=== PATIENT | male | born 1995 | race Hispanic/Latino ===

== ENCOUNTER 2019-10-22 14:22 | Observation (INO) | payer SELFPAY ==
[~2019-10-22 14:22] MED LIST: Iopamidol-370 76% 500 ML 1 ML ONE
[2019-10-22] MEDS ORDERED: Ondansetron PF 4 MG/2 ML Vial ONE ×2 (15:27→20:03)
[2019-10-22] MEDS ORDERED: Ketorolac Tromethamine 30 MG/ML VIAL ONE (15:27)
[2019-10-22 15:49] LABS: #Lymphocytes 0.9 thou/uL (1.20-3.40); #Monocytes 0.5 thou/uL (0.11-0.59); #Neutrophils 15.4 thou/uL (1.40-6.50); %Basophils 0.2 % (0.0-1.0); %Eosinophils 0.1 % (0.0-10.0); %Lymphocytes 5.4 % (21.0-51.0); %Monocytes 2.8 % (0.0-10.0); %Neutrophils 91.5 % (42.0-75.0); Hemoglobin 14.7 g/dL (14.0-18.0); Mean Corpuscular HGB CONC 34.2 g/dL (32.0-36.0); Mean Corpuscular Hemoglobin 30.6 pg (27.0-31.0); Mean Corpuscular Volume 89.5 fL (78.0-98.0); Mean Platelet Volume 9.4 fL (7.4-10.4); Platelet Count 264 thou/uL (130-400); RBC Distribution Width 10.5 % (11.5-14.5); Red Blood Cell (RBC) Count 4.81 mill/uL (4.70-6.10); White Blood Cell (WBC) Count 16.9 thou/uL (4.8-10.8)
[2019-10-22 15:54] LABS: ALT (SGPT) 12 U/L (8-55); AST (SGOT) 18 U/L (5-34); Albumin 4.4 g/dL (3.5-5.0); Alkaline Phosphatase 113 U/L (40-110); Anion Gap 15 mmol/L (10-20); BUN (Urea Nitrogen) 6 mg/dL (8.9-20.6); Bilirubin, Total 1.3 mg/dL (0.2-1.2); Calc. Creatinine Clearance 0 mL/min (70-130); Calcium 9.3 mg/dL (7.8-10.44); Carbon Dioxide 26 mmol/L (22-29); Chloride 98 mmol/L (98-107); Estimated GFR-MDRD Greater than 90; Globulin 3.3 g/dL (2.4-3.5); Glucose 97 mg/dL (70-105); Lipase 64 U/L (8-78); Potassium 3.6 mmol/L (3.5-5.1); Protein, Total 7.7 g/dL (6.0-8.3); Sodium 135 mmol/L (136-145)
[2019-10-22 15:57] LABS: Bacteria/HPF None Seen HPF (None Seen); Bilirubin Negative (Negative); Blood, Urine 1+ (Negative); Clarity Clear (Clear); Glucose, Urine (Dipstick) Normal (Negative); Leukocyte Negative Leu/uL (Negative); Nitrite Negative (Negative); Protein, Urine (Dipstick) 30 mg/dL (Neg-Trace); Squamous Epithelial None Seen HPF (0-3); Urobilinogen 3 mg/dL (Less than 2); WBC/HPF 0-3 HPF (0-3)
--- NOTE | 2019-10-22 17:02 | CT ---
CT ABDOMEN AND PELVIS PERFORMED WITH INTRAVENOUS CONTRAST ENHANCEMENT: 10/22/19 HISTORY: Abdominal pain. Lung bases show some ground glass type opacity within the lung bases which could represent a pneumoni tis type process. The liver, spleen, pancreas, and gallbladder regions appear unremarkable. Right and left adrenal glands and right and left kidneys are normal in size. There is no significant periaortic adenopathy. There are a few scattered mesenteric lymph nodes nonspecific. CT OF PELVIS PERFORMED WITH CONTRAST ENHANCEMENT: No evidence of adenopathy, mass, or free fluid. The appendix is normal. No significant bony findings. IMPRESSION: 1. No acute findings of the abdomen or pelvis. 2. Ground glass opacity to the lung bases with other areas which could indicate some air trappin g. Changes could be related to some type of pneumonitis type process. Less likely to be chronic in na ture in a patient of this age. POS: OFF
[2019-10-22] MEDS ORDERED: Acetaminophen 500 MG TAB ONE (18:27)
[2019-10-22] MEDS ORDERED: cefTRIAXone\\ROCEPHIN 2 GM VIAL ONE (19:01)
[2019-10-22] MEDS ORDERED: Azithromycin 500 MG VIAL ONE (19:01)
--- NOTE | 2019-10-22 19:29 | RAD ---
PORTABLE CHEST ONE VIEW: 10/22/19 at 7:16 p.m. HISTORY: Fever, nausea. FINDINGS: There are no previous exams for comparison. The heart size is normal. The lungs are expanded without lobar consolidation, pneumothoraces or pleur al effusions. IMPRESSION: No radiographic evidence of acute cardiopulmonary process. POS: [facility]
[2019-10-22] MEDS ORDERED: Promethazine HCl 25 MG/ML VIAL ONE (20:35)
[2019-10-22] MEDS ORDERED: diphenhydrAMINE 50 MG/ML VIAL ONE (20:50)
[2019-10-22] MEDS ORDERED: Dexamethasone 4 mg/ml Vial ONE (20:50)
[2019-10-22] MEDS ORDERED: Acetaminophen 325 MG TAB PO PRN (21:40)
[2019-10-22] MEDS ORDERED: Ondansetron PF 4 MG/2 ML Vial IVP PRN (21:40)
[2019-10-22] MEDS ORDERED: HYDROcodone/Acetaminophen 5/325 mg Tablet PO PRN ×2 (21:40)
[2019-10-22] MEDS ORDERED: Sodium Chloride 0.9% 1,000 ML IV SCH (21:40)
[2019-10-22] MEDS ORDERED: Ondansetron ODT 4 MG TAB SL PRN (21:40)
[2019-10-22] MEDS ORDERED: diphenhydrAMINE 25 MG CAP PO PRN (22:31)
[2019-10-22 22:39] VITALS: BMI 21.9
[2019-10-22] MEDS: Sodium Chloride 0.9% 1,000 ML IV SCH (23:13)
[2019-10-22] MEDS ORDERED: Sodium Chloride 0.9% (PF) 10 ML VIAL FS PRN (23:29)
[2019-10-23 00:04] LABS: Medtox Reader # READER 4
[2019-10-23 00:05] LABS: Amphetamine Not Detected (NotDetected); Barbiturates Screen Not Detected (NotDetected); Benzodiazepine Screen Not Detected (NotDetected); Cocaine Metabolite Screen Not Detected (NotDetected); Medtox Control Line Valid? VALID (VALID); Methadone Not Detected (NotDetected); Methamphetamine Not Detected (NotDetected); Opiate Screen Not Detected (NotDetected); Oxycodone Screen Not Detected (NotDetected); Phencyclidine (PCP) Not Detected (NotDetected); THC/Cannabinoid Screen Detected (NotDetected); Tricyclic Screen Not Detected (NotDetected)
--- NOTE | 2019-10-23 00:13 | HP ---
TIME OF ASSESSMENT: 2200 hours. CHIEF COMPLAINT: Abdominal pain, vomiting and diarrhea. HISTORY OF PRESENT ILLNESS: Mr. Lafleur is a 23-year-old gentleman, who reports having nausea, vomiting, and diarrhea as well as abdominal pain for the last week. He states he has been unable to tolerate any oral intake. Reports the stools have been between loose and watery. He reports feeling generally unwell, and has felt feverish at home. He has not taken his temperature. Denies having any cough, sore throat, shortness of breath, or chest pain. Denies having any urinary symptoms. He and his parents are concerned about recent infection involving the lower wisdom teeth, for which he received antibiotics in the last month. He apparently was referred to an oral surgeon, who stated he could not remove the wisdom teeth due to extensive underlying infection. He apparently completed a course of antibiotics, but never returned for followup. He denies any difficulty swallowing. The patient apparently was seen in the emergency department several days ago and had been sent home on antiemetics as well as pantoprazole with no improvement. ED COURSE: In the emergency department, he was noted to have a temperature of 100.6. He underwent laboratory studies that were notable for white count of 16.9, neutrophils 91.5%. LFTs notable for total bilirubin of 1.3 and alkaline phosphatase of 113. Lipase was normal at 64. He had a urinalysis done, which showed 30 of protein, 100 ketones, 1+ blood, 7 to 10 red blood cells, but negative for leukocyte esterase, nitrites, and no bacteria present. He had a chest x-ray done that showed no radiographic evidence of acute cardiopulmonary process. CT of the abdomen and pelvis was done as well, demonstrating no acute findings of the abdomen or pelvis. However, he did have ground-glass opacity to the lung bases with other areas felt to indicate some air trapping. This was felt to be associated with pneumonitis. He was started on IV antibiotics with Rocephin and also given Zofran for the nausea and vomiting as well as Toradol 50 mg IV for his pain. The patient apparently began to react to the Rocephin with facial swelling and erythema. He experienced some mild itching. He was therefore given Phenergan, Benadryl, and Decadron. He was switched to azithromycin. PAST MEDICAL HISTORY: 1. Recent infection associated with lower wisdom teeth. 2. History of inguinal hernias. PAST SURGICAL HISTORY: 1. Bilateral inguinal hernia repair. 2. Right shoulder surgery. SOCIAL HISTORY: The patient denies any tobacco use, alcohol consumption, or illicit drug use. FAMILY HISTORY: Noncontributory. ALLERGIES: PREVIOUSLY, NO KNOWN DRUG ALLERGIES, BUT NOW NOTED TO HAVE ALLERGY TO ROCEPHIN. CURRENT MEDICATIONS: None. PHYSICAL EXAMINATION: GENERAL: The patient appears thin, well developed, and is in no acute distress. VITAL SIGNS: Temperature 98.9, pulse 70, respirations 16, blood pressure 129/70, O2 saturation 97% on room air. HEENT: Normocephalic and atraumatic. The patient with notable periorbital swelling that is mild. Slight erythema over his left cheek. No rash. No hives. Oropharynx is clear. NECK: Notable for cervical adenopathy. No nuchal rigidity or stiffness. Full range of motion. LUNGS: Clear to auscultation bilaterally without any wheezes, rales, or rhonchi. CARDIAC: Regular rate and rhythm without audible murmurs, rubs, or gallops. ABDOMEN: Soft, nondistended. Diffuse discomfort with palpation, but no guarding, or rigidity. No renal angle tenderness. EXTREMITIES: No lower leg swelling or edema. NEUROLOGIC: Alert and oriented x3. SKIN: Warm and dry. INVESTIGATIONS: As mentioned above in HPI. IMPRESSION AND PLAN: Mr. Lafleur is a 23-year-old gentleman, who is being admitted for management of the followin. Leukocytosis and fever. Source of infection none. CT abdomen and pelvis showed possibility of pneumonitis involving the lung bases. We will obtain CT of the chest in the morning and we will add on a CT of the neck as family is concerned. He may have infection involving his neck or wisdom teeth given extensive infection he was treated for recently. We will add on lactic acid. Repeat LFTs with morning labs. 2. Nausea, vomiting, and diarrhea. Could be viral in nature. We will keep him on a clear liquid diet. Given recent antibiotics, we will obtain stool studies including C diff. Continue IV fluids. 3. Hyperbilirubinemia. Again, repeat LFTs and lipase with morning labs. 4. Gastrointestinal prophylaxis. We will continue Protonix. 5. Allergic reaction has improved. Continue to monitor. P.r.n. Benadryl ordered. 6. Deep venous thrombosis prophylaxis. Mechanical SCDs. 7. Code status full. Surrogate decision maker is his mother, Elza Lafleur. Case was discussed with attending, who agrees upon care as described above. Job ID: [id number]
[2019-10-23 06:03] LABS: #Lymphocytes 0.4 thou/uL (1.20-3.40); #Monocytes 0.1 thou/uL (0.11-0.59); #Neutrophils 8.7 thou/uL (1.40-6.50); %Basophils 0.1 % (0.0-1.0); %Eosinophils 0.1 % (0.0-10.0); %Lymphocytes 4.7 % (21.0-51.0); %Monocytes 1.2 % (0.0-10.0); %Neutrophils 93.8 % (42.0-75.0); Hemoglobin 13.3 g/dL (14.0-18.0); Mean Corpuscular Volume 91.5 fL (78.0-98.0); Mean Platelet Volume 8.7 fL (7.4-10.4); Platelet Count 222 thou/uL (130-400); RBC Distribution Width 10.5 % (11.5-14.5); Red Blood Cell (RBC) Count 4.17 mill/uL (4.70-6.10); White Blood Cell (WBC) Count 9.3 thou/uL (4.8-10.8)
[2019-10-23 06:28] LABS: ALT (SGPT) 13 U/L (8-55); AST (SGOT) 18 U/L (5-34); Albumin 3.8 g/dL (3.5-5.0); Alkaline Phosphatase 100 U/L (40-110); Anion Gap 12 mmol/L (10-20); BUN (Urea Nitrogen) 10 mg/dL (8.9-20.6); Bilirubin, Total 0.7 mg/dL (0.2-1.2); Calc. Creatinine Clearance 146 mL/min (70-130); Calcium 8.8 mg/dL (7.8-10.44); Carbon Dioxide 22 mmol/L (22-29); Chloride 107 mmol/L (98-107); Estimated GFR-MDRD Greater than 90; Globulin 2.9 g/dL (2.4-3.5); Glucose 111 mg/dL (70-105); Lipase 29 U/L (8-78); Potassium 4.4 mmol/L (3.5-5.1); Protein, Total 6.7 g/dL (6.0-8.3); Sodium 137 mmol/L (136-145)
--- NOTE | 2019-10-23 08:44 | CT ---
CT chest with IV contrast HISTORY: Fever. Leukocytosis. Lung infiltrate. FINDINGS: Lungs are slightly hyperinflated. Subtle peripheral groundglass opacities involving each up per lobe. No lobar consolidation. No pleural fluid or focal mass. No enlarged lymph nodes evident within the mediastinum. IMPRESSION: Subtle peripheral bilateral upper lobe groundglass parenchymal opacities. While nonspecif ic, this can be seen with acute hypersensitivity reaction and eosinophilic pneumonia. In the setting of fever and abdominal pain, parasitic infection or other infectious process may result in th michael findings.
[2019-10-23] MEDS: Sodium Chloride 0.9% 1,000 ML IV SCH (08:45)
--- NOTE | 2019-10-23 08:52 | CT ---
CT neck with IV contrast HISTORY: Fever. Leukocytosis. FINDINGS: Upper airway is patent. Nonspecific lymph nodes along each jugular chain. Visualized saliva ry glands are symmetric. No fluid collections or focal inflammation evident. Subtle groundglass parenchymal opacities of the partially visualized upper lung lobes better detailed on dedicated CT ch est. IMPRESSION: No abnormalities are demonstrated
[2019-10-23] MEDS ORDERED: Pantoprazole 40 MG VIAL IVP SCH (09:00)
[2019-10-23 12:57] VITALS: TEMP 98.2
--- NOTE | 2019-10-23 14:44 | PDOC.HOSPP ---
- Subjective Encounter Date: 10/23/19 Encounter Time: 09:00 Subjective: Pt seen for followup re; diarrhea. Feels better today. - Objective Vital Signs & Weight: Vital Signs (12 hours) Temp Pulse Resp BP BP Pulse Ox 10/23/19 12:00 98.2 F 94 18 117/70 99 10/23/19 08:00 97.9 F 89 18 117/72 98 10/23/19 04:42 97.9 F 91 20 107/67 98 Weight Weight 139 lb 12.8 oz I&O: 10/22/19 10/23/19 10/24/19 06:59 06:59 06:59 Intake Total 1300 Balance 1300 Result Diagrams: 10/23/19 05:53 10/23/19 05:53 Additional Labs: labs and MARs reviewed by [facility] Hospitalist ROS - Review of Systems Respiratory: denies: cough, shortness of breath, SOB with excertion, pleuritic pain, wheezing Cardiovascular: denies: chest pain, palpitations, orthopnea, paroxysmal noc. dyspnea, edema, light headedness - Medication Medications: Active Medications Generic Name Dose Route Start Last Admin Trade Name Freq PRN Reason Stop Dose Admin Sodium Chloride 1,000 mls @ 100 mls/hr 10/22/19 23:00 10/23/19 08:45 Normal Saline 0.9% IV 1,000 mls .Q10H SHAKILA Administration Pantoprazole Sodium 40 mg 10/23/19 09:00 10/23/19 08:42 Protonix IVP 40 mg DAILY SHAKILA Administration - Exam General Appearance: NAD Eye: anicteric sclera ENT: moist mucosa Neck: supple Heart: RRR Respiratory: CTAB Gastrointestinal: soft, non-tender Neurological: no weakness Psychiatric: normal affect, normal behavior Hosp A/P (1) Diarrhea Code(s): R19.7 - DIARRHEA, UNSPECIFIED Status: Acute (2) Hyponatremia Code(s): E87.1 - HYPO-OSMOLALITY AND HYPONATREMIA Status: Chronic (3) Leucocytosis Code(s): D72.829 - ELEVATED WHITE BLOOD CELL COUNT, UNSPECIFIED Status: Chronic - Plan out of bed/ambulate Diarrhea improved. No evidence of infection. Start Imodium. ? viral etiology.
[2019-10-23] MEDS ORDERED: Loperamide HCl 2 MG CAP PO PRN (14:52)
[2019-10-23] MEDS ORDERED: Loperamide HCl 2 MG CAP PO SCH (15:00)
--- NOTE | 2019-10-23 15:54 | CON ---
DATE OF CONSULTATION: 10/23/2019 REASON FOR CONSULTATION: Abdominal pain, diarrhea. 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 Otherwise, no significant past medical history and well until about a week before when he developed diarrhea, nausea, associated with inability to eat a proper diet and then abdominal pain, which is diffuse. Started having vomiting spells and low-grade temperature elevation and ended up coming to the emergency room. Initial findings with a temperature 100, pulse 108, respirations 20, blood pressure 130/70, O2 saturation 100%. The exam was remarkable for diffuse abdominal tenderness. Other findings; white cell count 16.9, hemoglobin 14.7, platelets 264, 91% neutrophils. Sodium 135, creatinine 0.8, bilirubin 1.3, alkaline phosphatase 113. Urinalysis is 0 to 3 wbc's, 7 to 10 rbc's, 30 protein. Microbiology, all negative including stool for C diff, Campylobacter, and Shiga toxin. Blood cultures influenza, stool lactoferrin was elevated though. The patient had abdomen and pelvis CT with no findings of significance in the abdominal and pelvic area. He did have some ground-glass opacities in lung bases. Soft tissue neck CT was completed and no significant findings noted. Currently, he is feeling better, back to normal pretty much, he is hungry. No headaches, visual symptoms, sore throat, odynophagia, or dysphagia. No cough, sputum production, or chest pain. No more abdominal pain. No genitourinary symptoms. No joint symptoms. No skin disorder. PAST MEDICAL HISTORY: Herniorrhaphy and shoulder surgery. ALLERGIES: CEFTRIAXONE WITH RASH. 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 FAMILY HISTORY: Noncontributory. PHYSICAL EXAMINATION: VITAL SIGNS: Essentially normal. He has been afebrile since admission. SKIN: Normal. LYMPHATIC: There is no lymphadenopathy. HEENT: Ocular movements conjugate. Oral cavity completely normal with excellent teeth. NECK: Supple. No jugular vein distention or carotid bruits. LUNGS: Symmetric clear breath sounds. HEART: S1 and S2. Regular rate. ABDOMEN: Soft, not distended or tender. No ascites. No bladder distention. EXTREMITIES: No joint inflammatory activity. Moves extremities equally. NEUROLOGIC: Cognitive function is intact. LABORATORY DATA: White cell count is at 9.3, hemoglobin 13, platelets 222 with 92% neutrophils. Followup chemistry with normalization of bilirubin and alkaline phosphatase. ASSESSMENT: Low-grade fever with vomiting, diarrhea, diffuse abdominal pain, mild abnormalities in liver function tests. DISCUSSION: Differential diagnosis includes gastrointestinal illness associated with gastroenteritis possibly from food borne pathogen including possibility of norovirus, the usual enteral pathogens. The lung findings do not seem to be pertinent to the current clinical presentation. This seems to be a transient illness, so I do not expect any persistence or recrudescence of symptoms. In view of his exposure history clearing [place] and so on, there is a risk of exposure to histoplasmosis and cryptococcosis, but he does not appear to have any manifestations that would suggest that. At this moment, we will recommend discharge planning with followup in the outpatient setting. Job ID: [id number]
[2019-10-23 16:35] LABS: Syphilis Antibody Nonreactive (Nonreactive); Syphilis Antibody Index 0.05 S/CO (<1.00 Non-Reactive)
[2019-10-23 16:37] LABS: HBSAB Concentration 1.83 mIU/mL; HBSAg Index 0.31 S/CO (0-0.99); HIV (1/2) Antibody/Antigen Non-Reactive (NonReactive); HIV 1/2 INDEX 0.15 S/CO (<1.00); Hep A IgM AB Non-Reactive (NonReactive); Hep A IgM S/CO 0.21 S/CO (0-0.79); Hep B Surf AB Non-Reactive (NonReactive); Hep B Surf Ag Non-Reactive S/CO (NonReactive); Hep C IgG Ab Non-Reactive (NonReactive); Hep C Index 0.07 S/CO (0-0.79)
[2019-10-23 16:55] VITALS: BP 112/71
--- NOTE | 2019-10-24 00:34 | DIS ---
DATE OF ADMISSION: 10/22/2019 DATE OF DISCHARGE: 10/23/2019 PRIMARY CARE PROVIDER: Dr. Christopher Chambers. DISCHARGE DIAGNOSES: 1. Nausea and vomiting. 2. Diarrhea. 3. Most likely viral etiology for above symptoms. 4. Hyponatremia. 5. Leukocytosis. CONDITION OF PATIENT ON THE DAY OF DISCHARGE: Stable. I assessed Mr. Lafleur on the day of discharge. He denies any chest pain or shortness of breath. Vital signs are stable. S1 and S2 are heard, regular. Lungs are clear to auscultation bilaterally. CONSULTATIONS DURING THIS HOSPITALIZATION: Infectious Diseases, Jose Woodard MD. POST-ACUTE CARE FOLLOWUP: With primary care provider in 3 days time. HOSPITAL COURSE: Mr. Lafleur is a pleasant 23-year-old gentleman, who was admitted to [facility] on October 22, 2019, for nausea, vomiting, and diarrhea. Please refer to Ms. Romero's history and physical note dated October 23, 2019, for further details. CT scan of the abdomen and pelvis did not show any acute findings. CT scan of the chest showed subtle peripheral bilateral upper lobe ground-glass parenchymal opacities. This was nonspecific, but can be seen with acute hypersensitivity reaction and eosinophilic pneumonia. In the setting of fever and abdominal pain, parasitic infection or other infectious process may result in this findings, according to radiology. He also had CT scan of the soft tissues of the neck, which did not show any abnormalities. His symptoms resolved. Campylobacter antigen assay and E coli shiga toxins 1 and 2 were negative. Clostridium difficile test was negative. Stool rapid parasite screen was negative for Giardia and Cryptosporidium. Stool lactoferrin was elevated. At the time of this dictation, preliminary blood cultures are negative. He has been advised to follow up with primary care provider for final blood culture result. He has also been advised to follow up with primary care provider regarding abnormalities seen on CT scan. He was seen by Infectious Disease Service. It was felt that the CT scan of chest findings were not related to his presentation. He has been cleared for discharge. Many thanks for allowing me to participate in your patient's care. Please feel free to contact me with any questions or concerns. On the day of discharge, he has white count 9300, hemoglobin 13.3, platelet count 222,000, and an unremarkable comprehensive metabolic profile. Syphilis screen was nonreactive during this hospitalization. DISCHARGE DESTINATION: Home. Many thanks for allowing me to participate in your patient's care. Please feel free to contact me with any questions or concerns. ACTIVITY: Ad joelle. DIET: Regular. Job ID: [id number]
--- NOTE | 2019-11-05 15:43 | EKG ---
Test Reason : ABD PAIN Blood Pressure : / mmHG Vent. Rate : 106 BPM Atrial Rate : 106 BPM P-R Int : 116 ms QRS Dur : 098 ms QT Int : 318 ms P-R-T Axes : 067 061 056 degrees QTc Int : 422 ms Poor data quality, interpretation may be adversely affected Sinus tachycardia with Fusion complexes Incomplete right bundle branch block Borderline ECG Confirmed by RAYA TAYLOR ([id number]), make up editor WAYLON MARTINES ([id number]) on 11/05/2019 3:42:55 PM Referred By: Confirmed By:RAYA Craft
== END 2019-10-23 17:36 | disposition home or self-care (01) ==
LOC: ERS 14:22 → T4-B 20:33 → ERS 21:28
PROVIDERS: ADMIT Family Medicine; ATTEND Family Medicine
DX: R11.2 Nausea with vomiting, unspecified (principal); R19.7 Diarrhea, unspecified; R10.9 Unspecified abdominal pain; E87.1 Hypo-osmolality and hyponatremia; D72.829 Elevated white blood cell count, unspecified; E80.6 Other disorders of bilirubin metabolism; R94.5 Abnormal results of liver function studies; R50.9 Fever, unspecified; Z88.1 Allergy status to other antibiotic agents
CPT/HCPCS: 36415; 70491; 71045; 71260; 74177; 80053; 80306; 81003; 81015; 83605; 83630; 83690; 85025; 86706; 86709; 86780; 86803; 87040; 87045; 87046; 87077; 87149; 87324; 87328; 87329; 87340; 87389; 87427; 87449; 87633; 87804; 93005; 96361; 96365; 96367; 96375; 96376; C9113; G0378; J0456; J0696; J1100; J1200; J1885; J2405; J2550; Q9967

== ENCOUNTER 2019-10-25 18:28 | Emergency (ER) | payer SELFPAY ==
[2019-10-25 19:02] LABS: #Eosinphils 0.1 thou/uL (0.0-0.7); #Lymphocytes 1.2 thou/uL (1.20-3.40); #Monocytes 0.3 thou/uL (0.11-0.59); #Neutrophils 10.2 thou/uL (1.40-6.50); %Basophils 0.3 % (0.0-1.0); %Eosinophils 0.4 % (0.0-10.0); %Lymphocytes 10.3 % (21.0-51.0); %Monocytes 2.5 % (0.0-10.0); %Neutrophils 86.5 % (42.0-75.0); Hemoglobin 14.6 g/dL (14.0-18.0); Mean Corpuscular HGB CONC 34.6 g/dL (32.0-36.0); Mean Corpuscular Hemoglobin 30.9 pg (27.0-31.0); Mean Corpuscular Volume 89.4 fL (78.0-98.0); Mean Platelet Volume 8.3 fL (7.4-10.4); Platelet Count 323 thou/uL (130-400); RBC Distribution Width 10.6 % (11.5-14.5); Red Blood Cell (RBC) Count 4.72 mill/uL (4.70-6.10); White Blood Cell (WBC) Count 11.8 thou/uL (4.8-10.8)
[2019-10-25 19:23] LABS: ALT (SGPT) 12 U/L (8-55); AST (SGOT) 16 U/L (5-34); Albumin 4.3 g/dL (3.5-5.0); Alkaline Phosphatase 100 U/L (40-110); Anion Gap 15 mmol/L (10-20); BUN (Urea Nitrogen) 8 mg/dL (8.9-20.6); Bilirubin, Total 0.8 mg/dL (0.2-1.2); Calc. Creatinine Clearance 0 mL/min (70-130); Calcium 9.6 mg/dL (7.8-10.44); Carbon Dioxide 25 mmol/L (22-29); Chloride 101 mmol/L (98-107); Estimated GFR-MDRD Greater than 90; Globulin 3.3 g/dL (2.4-3.5); Glucose 113 mg/dL (70-105); Lipase 28 U/L (8-78); Potassium 3.6 mmol/L (3.5-5.1); Protein, Total 7.6 g/dL (6.0-8.3); Sodium 137 mmol/L (136-145)
[2019-10-25 21:01] LABS: Bacteria/HPF None Seen HPF (None Seen); Bilirubin Negative (Negative); Blood, Urine Trace (Negative); Clarity Clear (Clear); Glucose, Urine (Dipstick) Normal (Negative); Leukocyte Negative Leu/uL (Negative); Nitrite Negative (Negative); Protein, Urine (Dipstick) 20 mg/dL (Neg-Trace); Squamous Epithelial 0-3 HPF (0-3); Urobilinogen Normal mg/dL (Less than 2); WBC/HPF 0-3 HPF (0-3)
--- NOTE | 2019-10-25 22:11 | CT ---
CT ABDOMEN AND PELVIS WITH IV CONTRAST: 10/25/19 HISTORY: Nausea, vomiting and diarrhea as well as fever. Lower abdominal pain. COMPARISON: 10/22/19. FINDINGS: Again noted are mild ground glass densities seen at each lung base not significantly changed compared to the prior exam. Findings again may be related to pneumonitis. Follow-up to resolution is suggeste d. No pleural effusion is seen at either lung base. The liver, spleen, pancreas, bilateral adrenal glands, kidneys, abdominal aorta, and urinary bladder demonstrate a normal CT appearance. Fluid filled loops of small bowel are noted which are not dilated. The appendix is visualized and cammy led with gas and normal in caliber. CT abdomen and pelvis is stable when compared to the prior exam. There has been no interval change co mpared to prior study. IMPRESSION: 1. Stable CT scan of the abdomen and pelvis including stable ground glass opacities at each lung base. This is overall a nonspecific finding. Findings could be related to infectious process. Hypers ensitivity pneumonitis is a possibility versus eosinophilic pneumonia as noted on prior CT thorax. 2. No acute findings in the abdomen or pelvis. POS: [facility]
== END 2019-10-25 22:39 | disposition home or self-care (01) ==
LOC: ERS 18:28
DX: R10.30 Lower abdominal pain, unspecified (principal); R10.814 Left lower quadrant abdominal tenderness; R11.0 Nausea
CPT/HCPCS: 36415; 74177; 80053; 81003; 81015; 83690; 85025; 87804; Q9967